=== PATIENT | female | born 1960 | race Caucasian/White ===

== ENCOUNTER 2018-05-07 14:50 | Emergency (ER) | payer SELFPAY ==
[~2018-05-07] VITALS: Ht 157.5 cm; Wt 59.0 kg
--- OUTSIDE RECORDS SUMMARY | 2018-05-07 14:53 | XMS REPORT ---
Author Author Angela Berry [facility] eClinicalWorks Address Unknown Phone Unavailable Care Team Providers Care Knotter Hand Name Role Phone Angela Berry CP Unavailable Allergies, Adverse Reactions, Alerts Substance Reaction Event Type N.K.D.A. Info Not Available Non Drug Allergy Problems Problem Type Condition Code Onset Dates Condition Status Assessment Chronic daily headache R51 Active Problem Attention deficit disorder, unspecified hyperactivity presence F98.8 Active Problem Attention deficit hyperactivity disorder (ADHD), combined type F90.2 Active Problem Attention-deficit hyperactivity disorder, predominantly inattentive type F90.0 Active Assessment Other injury of unspecified body region, initial encounter T14.8XXA Active Assessment Attention deficit hyperactivity disorder (ADHD), combined type F90.2 Active Assessment Body mass index (BMI) of 24.0-24.9 in adult Z68.24 Active Assessment Cellulitis of right hand L03.113 Active Medications Medication Code System Code Instructions Start Date End Date Status Dosage Topamax [facility] 56961829824 100 MG Orally Twice a day Active 1 tablet Mupirocin [facility] 66365703611 2 % Externally Three times a day Dec 23, 2016 Jan 12, 2017 Active 1 application to affected area Adderall XR [facility] 34942559252 30 MG Orally Once a day Active 1 capsule in the morning Multi Vitamin [facility] 83541931533 - Orally Once a day Active 1 tablet Etodolac [facility] 99728672241 400 MG Orally Twice a day Dec 23, 2016 Jan 22, 2017 Active 1 tablet with food Doxycycline Monohydrate [facility] 89935265622 100 MG Orally every 12 hrs Dec 23, 2016 Jan 02, 2017 Active 1 tablet Vital Signs Date/Time: Dec 23, 2016 BMI 24.29 Index Weight 132.8 lbs Height 62 in Cardiac Monitoring Heart Rate 80 /min Blood Pressure Diastolic 79 mm Hg Blood Pressure Systolic 110 mm Hg Results No Known Results Summary Purpose eClinicalWorks Submission
--- OUTSIDE RECORDS SUMMARY | 2018-05-07 14:53 | XMS REPORT | Continuity of Care Document ---
Author Author [facility] Interface Address Unknown Phone Unavailable Problems Problem Status Onset Date Classification Date Reported Comments Source Attention deficit disorder, unspecified hyperactivity presence Active Problem 04/17/2018 [facility] Attention deficit hyperactivity disorder , combined type Active Problem 04/17/2018 [facility] Attention-deficit hyperactivity disorder, predominantly inattentive type Active Problem 04/17/2018 [facility] Chronic daily headache Active Diagnosis 11/19/2017 [facility] Other fatigue Active Diagnosis 02/19/2018 [facility] Body mass index of 24.0-24.9 in adult Active Diagnosis 08/05/2017 [facility] Other injury of unspecified body region, initial encounter Active Diagnosis 06/26/2017 [facility] Cellulitis of right hand Active Diagnosis 06/26/2017 [facility] Moderate persistent reactive airway disease with acute exacerbation Active Problem 04/17/2018 [facility] Body mass index of 30.0-30.9 in adult Active Problem 04/17/2018 [facility] Attention deficit hyperactivity disorder , unspecified ADHD type Active Problem 04/17/2018 [facility] ADD without hyperactivity Active Problem 04/17/2018 [facility] Other migraine without status migrainosus, not intractable Active Problem 04/17/2018 [facility] Other migraine with status migrainosus, intractable Active Problem 04/17/2018 [facility] Fatigue, unspecified type Active Diagnosis 06/27/2017 [facility] [employer] [facility] Medication refill Active Diagnosis 02/19/2018 [facility] BMI 23.0-23.9, adult Active Diagnosis 02/19/2018 [facility] Dizziness Active Diagnosis 03/24/2018 [facility] Other eczema Active Diagnosis 03/24/2018 [facility] Pain of left thumb Active Diagnosis 03/24/2018 [facility] Allergic drug rash Active Diagnosis 01/11/2018 [facility] Muscle spasm Active Diagnosis 12/22/2017 [facility] Tail bone pain Active Diagnosis 12/22/2017 [facility] Urticaria Active Diagnosis 01/11/2018 [facility] Encounter for general adult medical examination without abnormal findings Active Diagnosis 12/22/2017 [facility] Medications Medication Details Route Status Patient Instructions Ordering Provider Order Date Source Triamcinolone Acetonide 1 application to affected area Externally Active 0.1 % Externally Twice a day [facility] 03/16/2018 [facility] Tylenol/Codeine #3 1 tablet as needed Orally Active 300-30 MG Orally twice a day (bid) as needed (prn) [facility]03/16/2018 [facility] Clonazepam 1 tablet at bedtime Orally Active 0.5 MG Orally three times a day (tid) as needed (prn) [facility] 02/23/2018 [facility] Toprol XL 1 tablet Orally Active 100 mg Orally Once a day [facility] 08/29/2017 [facility] Clonazepam 1 tablet on the tongue and allow to dissolve at bedtime Orally Active 0.5 MG Orally three times a day (tid) as needed (prn) [facility] 08/29/2017 [facility] Clonazepam 1 tablet Orally Active 0.5 MG Orally three times a day (tid) as needed (prn) [facility] 08/29/2017 [facility] Adderall 1 tablet in the morning Orally Active 30 mg Orally Once a day [facility] 01/22/2017 [facility] Etodolac 1 tablet with food Orally Active 400 MG Orally Twice a day [facility] 12/23/2016 [facility] Mupirocin 1 application to affected area Externally Active 2 % Externally Three times a day [facility] 12/23/2016 [facility] Doxycycline Monohydrate 1 tablet Orally Active 100 MG Orally every 12 hrs [facility] 12/23/2016 [facility] Adderall XR 1 capsule in the morning Orally Active 30 MG Orally Once a day [facility] Topamax 1 tablet Orally Active 100 mg Orally Twice a day [facility] Multi Vitamin 1 tablet Orally Active - Orally Once a day [facility] Baby Aspirin 1 tablet by mouth Active 81 MG by mouth Once a day [facility] Allergies, Adverse Reactions, Alerts Substance Category Reaction Severity Reaction type Status Date Reported Comments Source N.K.D.A. Adverse Reaction Info Not Available Adverse Reaction Active 04/30/2017 [facility] prednisone Adverse Reaction Info Not Available Adverse Reaction Active 03/16/2018 [facility] Immunizations Immunization Date Given Site Status Last Updated Comments Source Results Order Name Results Value Reference Range Date Interpretation Comments Source Vital Signs Vital Sign Value Date Comments Source Weight 131.8 03/16/2018 [facility] Height 62 03/16/2018 [facility] Heart Rate 104 03/16/2018 [facility] Diastolic (mm Hg) 99 03/16/2018 [facility] Systolic (mm Hg) 159 03/16/2018 [facility] Weight 130 02/12/2018 [facility] Height 62 02/12/2018 [facility] Heart Rate 74 02/12/2018 [facility] Diastolic (mm Hg) 87 02/12/2018 [facility] Systolic (mm Hg) 134 02/12/2018 [facility] Weight 130.2 01/09/2018 [facility] Height 62 01/09/2018 [facility] Heart Rate 76 01/09/2018 [facility] Diastolic (mm Hg) 89 01/09/2018 [facility] Systolic (mm Hg) 136 01/09/2018 [facility] Weight 129.8 12/03/2017 [facility] Height 62 12/03/2017 [facility] Heart Rate 80 12/03/2017 [facility] Diastolic (mm Hg) 82 12/03/2017 [facility] Systolic (mm Hg) 130 12/03/2017 [facility] Weight 286.16 11/21/2017 [facility] Height 24.41 11/21/2017 [facility] Heart Rate 98 11/21/2017 [facility] Diastolic (mm Hg) 82 11/21/2017 [facility] Systolic (mm Hg) 129 11/21/2017 [facility] Weight 129 10/22/2017 [facility] Height 62 10/22/2017 [facility] Heart Rate 103 10/22/2017 [facility] Diastolic (mm Hg) 116 10/22/2017 [facility] Systolic (mm Hg) 156 10/22/2017 [facility] Weight 130.7 09/26/2017 [facility] Height 62 09/26/2017 [facility] Heart Rate 78 09/26/2017 [facility] Diastolic (mm Hg) 89 09/26/2017 [facility] Systolic (mm Hg) 139 09/26/2017 [facility] Weight 131.8 08/29/2017 [facility] Height 62 08/29/2017 [facility] Heart Rate 67 08/29/2017 [facility] Diastolic (mm Hg) 81 08/29/2017 [facility] Systolic (mm Hg) 148 08/29/2017 [facility] Weight 132.6 06/23/2017 [facility] Height 62 06/23/2017 [facility] Heart Rate 74 06/23/2017 [facility] Diastolic (mm Hg) 84 06/23/2017 [facility] Systolic (mm Hg) 136 06/23/2017 [facility] Weight 134.6 04/30/2017 [facility] Height 62 04/30/2017 [facility] Heart Rate 78 04/30/2017 [facility] Diastolic (mm Hg) 76 04/30/2017 [facility] Systolic (mm Hg) 112 04/30/2017 [facility] Weight 133.4 04/02/2017 [facility] Height 62 04/02/2017 [facility] Heart Rate 80 04/02/2017 [facility] Diastolic (mm Hg) 79 04/02/2017 [facility] Systolic (mm Hg) 110 04/02/2017 [facility] Weight 134.0 02/25/2017 [facility] Height 62 02/25/2017 [facility] Heart Rate 68 02/25/2017 [facility] Diastolic (mm Hg) 78 02/25/2017 [facility] Systolic (mm Hg) 113 02/25/2017 [facility] Weight 133.2 01/22/2017 [facility] Height 62 01/22/2017 [facility] Heart Rate 62 01/22/2017 [facility] Diastolic (mm Hg) 79 01/22/2017 [facility] Systolic (mm Hg) 113 01/22/2017 [facility] Weight 132.8 12/23/2016 [facility] Height 62 12/23/2016 [facility] Heart Rate 80 12/23/2016 [facility] Diastolic (mm Hg) 79 12/23/2016 [facility] Systolic (mm Hg) 110 12/23/2016 [facility] Encounters Location Location Details Encounter Type Encounter Number Reason For Visit Attending Provider ADM Date DC Date Status Source Procedures Procedure Code Date Perfomer Comments Source
--- OUTSIDE RECORDS SUMMARY | 2018-05-07 14:53 | XMS REPORT ---
Author Author Angela Berry [facility] eClinicalWorks Address Unknown Phone Unavailable Care Team Providers Care Bulldozer/Loader/Compactor/Scraper Name Role Phone Angela Berry CP Unavailable Allergies, Adverse Reactions, Alerts Substance Reaction Event Type N.K.D.A. 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 64962063737 100 MG Orally Twice a day Active 1 tablet Adderall [facility] 15186415199 30 mg Orally Once a day Jan 22, 2017 Active 1 tablet in the morning Adderall XR ND 41304576758 30 MG Orally Once a day Active 1 capsule in the morning Multi Vitamin ND 15201923382 - Orally Once a day Active 1 tablet Vital Signs Date/Time: Feb 25, 2017 BMI 24.51 Index Weight 134.0 lbs Height 62 in Cardiac Monitoring Heart Rate 68 /min Blood Pressure Diastolic 78 mm Hg Blood Pressure Systolic 113 mm Hg Results No Known Results Summary Purpose eClinicalWorks Submission
--- OUTSIDE RECORDS SUMMARY | 2018-05-07 14:53 | XMS REPORT ---
Author Author Angela Berry eClinicalWorks Address Unknown Phone Unavailable Care Team Providers Care Wind Turbine Performance Engineer Name Role Phone Angela Berry CP Unavailable Allergies, Adverse Reactions, Alerts Substance Reaction Event Type N.K.D.A. 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 Active Problem Attention-deficit hyperactivity disorder, predominantly inattentive type F90.0 Active Assessment Attention deficit hyperactivity disorder (ADHD), combined type F90.2 Active Assessment Chronic daily headache R51 Active Assessment Other fatigue R53.83 Active Assessment Body mass index (BMI) of 24.0-24.9 in adult Z68.24 Active Medications Medication Code System Code Instructions Start Date End Date Status Dosage Adderall XR [facility] 51213842819 30 MG Orally Once a day Active 1 capsule in the morning Etodolac [facility] 11006915657 400 MG Orally Twice a day Dec 23, 2016 Jan 22, 2017 Active 1 tablet with food Topamax [facility] 28358652864 100 MG Orally Twice a day Active 1 tablet Adderall [facility] 47920875715 30 mg Orally Once a day Jan 22, 2017 Active 1 tablet in the morning Multi Vitamin ND 17805746152 - Orally Once a day Active 1 tablet Vital Signs Date/Time: Jan 22, 2017 BMI 24.36 Index Weight 133.2 lbs Height 62 in Cardiac Monitoring Heart Rate 62 /min Blood Pressure Diastolic 79 mm Hg Blood Pressure Systolic 113 mm Hg Results No Known Results Summary Purpose eClinicalWorks Submission
--- OUTSIDE RECORDS SUMMARY | 2018-05-07 14:54 | XMS REPORT ---
Author Author Angela Berry [facility] eClinicalWorks Address Unknown Phone Unavailable Care Team Providers Care Flight Test Supervisor Name Role Phone Angela Berry CP Unavailable Allergies No Known Allergies Problems Problem Type Condition Code Onset Dates Condition Status Problem Attention-deficit hyperactivity disorder, predominantly inattentive type F90.0 Active Problem Attention deficit disorder, unspecified hyperactivity presence F98.8 Active Problem Moderate persistent reactive airway disease with acute exacerbation J45.41 Active Problem Attention deficit hyperactivity disorder (ADHD), combined type F90.2 Active Medications No Known Medications Results No Known Results Summary Purpose eClinicalWorks Submission
--- OUTSIDE RECORDS SUMMARY | 2018-05-07 14:54 | XMS REPORT ---
Author Author Angela Berry Organization eClinicalWorks Address Unknown Phone Unavailable Care Team Providers Care Water Taxi Boat Mate Name Role Phone Angela Berry CP Unavailable Allergies No Known Allergies Problems Problem Type Condition Code Onset Dates Condition Status Problem Attention deficit disorder, unspecified hyperactivity presence F98.8 Active Problem Attention deficit hyperactivity disorder (ADHD), combined type F90.2 Active Problem Body mass index (BMI) of 30.0-30.9 in adult Z68.30 Active Problem Attention deficit hyperactivity disorder (ADHD), unspecified ADHD type F90.9 Active Problem ADD (attention deficit disorder) without hyperactivity F98.8 Active Problem Moderate persistent reactive airway disease with acute exacerbation J45.41 Active Problem Attention-deficit hyperactivity disorder, predominantly inattentive type F90.0 Active Problem Other migraine without status migrainosus, not intractable G43.809 Active Problem Other migraine with status migrainosus, intractable G43.811 Active Medications No Known Medications Results No Known Results Summary Purpose eClinicalWorks Submission
--- OUTSIDE RECORDS SUMMARY | 2018-05-07 14:54 | XMS REPORT ---
Author Author Angela Berry eClinicalWorks Address Unknown Phone Unavailable Care Team Providers Care Assistant Teacher Primary Name Role Phone Angela Berry Unavailable Allergies, Adverse Reactions, Alerts Substance Reaction Event Type prednisone Info Not Available Non Drug Allergy Problems Problem Type Condition Code Onset Dates Condition Status Assessment ADD (attention deficit disorder) without hyperactivity F98.8 Active Problem Attention deficit hyperactivity disorder (ADHD), combined type F90.2 Active Assessment BMI 23.0-23.9, adult Z68.23 Active Assessment Medication refill Z76.0 Active Assessment Other fatigue R53.83 Active Problem Attention deficit hyperactivity disorder (ADHD), unspecified ADHD type F90.9 Active Problem Other migraine with status migrainosus, intractable G43.811 Active Problem ADD (attention deficit disorder) without hyperactivity F98.8 Active Problem Attention-deficit hyperactivity disorder, predominantly inattentive type F90.0 Active Problem Attention deficit disorder, unspecified hyperactivity presence F98.8 Active Problem Other migraine without status migrainosus, not intractable G43.809 Active Problem Moderate persistent reactive airway disease with acute exacerbation J45.41 Active Medications Medication Code System Code Instructions Start Date End Date Status Dosage Baby Aspirin NDC 0 81 MG by mouth Once a day Active 1 tablet Toprol XL ND 83770603283 100 mg Orally Once a day August 29, 2017 Active 1 tablet Adderall ND 68224962314 30 mg Orally Once a day Jan 22, 2017 Active 1 tablet in the morning Topamax ND 33933981127 100 mg Orally Twice a day Active 1 tablet Clonazepam ND 59817996437 0.5 MG Orally three times a day (tid) as needed (prn) August 29, 2017 Active 1 tablet on the tongue and allow to dissolve at bedtime Multi Vitamin ND 09070144469 - Orally Once a day Active 1 tablet Vital Signs Date/Time: Jan 09, 2018 BMI 23.81 Index Weight 130.2 lbs Height 62 in Cardiac Monitoring Heart Rate 76 /min Blood Pressure Diastolic 89 mm Hg Blood Pressure Systolic 136 mm Hg Results No Known Results Summary Purpose eClinicalWorks Submission
--- OUTSIDE RECORDS SUMMARY | 2018-05-07 14:54 | XMS REPORT ---
Author Author Angela Berry Organization eClinicalWorks Address Unknown Phone Unavailable Care Team Providers Care Motor Runner Name Role Phone Angela Berry Unavailable Allergies No Known Allergies Problems Problem [...] with status migrainosus, intractable G43.811 Active Medications Medication Code System Code Instructions Start Date End Date Status Dosage Clonazepam [facility] 64486024503 0.5 MG Orally three times a day (tid) as needed (prn) Feb 23, 2018 Active 1 tablet at bedtime Results No Known Results Summary Purpose eClinicalWorks Submission
--- OUTSIDE RECORDS SUMMARY | 2018-05-07 14:54 | XMS REPORT ---
Author Author Angela Berry eClinicalWorks Address Unknown Phone Unavailable Care Team Providers Care Knobber Name Role Phone Angela Berry Unavailable Allergies, [...] migraine with status migrainosus, intractable G43.811 Active Assessment Attention deficit hyperactivity disorder (ADHD), unspecified ADHD type F90.9 Active Assessment Dizziness R42 Active Assessment Other eczema L30.8 Active Assessment Pain of left thumb M79.645 Active Medications Medication Code System Code Instructions Start Date End Date Status Dosage Clonazepam [facility] 08399841813 0.5 MG Orally three times a day (tid) as needed (prn) August 29, 2017 Active 1 tablet Toprol XL [facility] 21932075986 100 mg Orally Once a day August 29, 2017 Active 1 tablet Triamcinolone Acetonide [facility] 61331106859 0.1 % Externally Twice a day Mar 16, 2018 Active 1 application to affected area Clonazepam ND 43770108295 0.5 MG Orally three times a day (tid) as needed (prn) Feb 23, 2018 Active 1 tablet at bedtime Adderall [facility] 80767730682 30 mg Orally Once a day Jan 22, 2017 Active 1 tablet in the morning Tylenol/Codeine #3 [facility] 31546755747 300-30 MG Orally twice a day (bid) as needed (prn) Mar 16, 2018 Apr 15, 2018 Active 1 tablet as needed Topamax [facility] 21879433244 100 mg Orally Twice a day Active 1 tablet Multi Vitamin [facility] 26487428989 - Orally Once a day Active 1 tablet Baby Aspirin NDC 0 81 MG by mouth Once a day Active 1 tablet Vital Signs Date/Time: Mar 16, 2018 BMI 24.10 Index Weight 131.8 lbs Height 62 in Cardiac Monitoring Heart Rate 104 /min Blood Pressure Diastolic 99 mm Hg Blood Pressure Systolic 159 mm Hg Results No Known Results Summary Purpose eClinicalWorks Submission
--- OUTSIDE RECORDS SUMMARY | 2018-05-07 14:54 | XMS REPORT ---
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 Active Problem Attention deficit hyperactivity disorder (ADHD), [...] airway disease with acute exacerbation J45.41 Active Assessment Attention deficit hyperactivity disorder (ADHD), combined 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 Active Assessment Allergic drug rash L27.0 Active Assessment Muscle spasm M62.838 Active Assessment Other migraine without status migrainosus, not intractable G43.809 Active Assessment Tail bone pain M53.3 Active Assessment Urticaria L50.9 Active Medications Medication Code System Code Instructions Start Date End Date Status Dosage Adderall [facility] 11769748333 30 mg Orally Once a day Jan 22, 2017 Active 1 tablet in the morning Toprol XL ND 03276991046 100 mg Orally Once a day August 29, 2017 Active 1 tablet Multi Vitamin ND 87634597172 - Orally Once a day Active 1 tablet Adderall XR [facility] 14860372464 30 MG Orally Once a day Active 1 capsule in the morning Clonazepam ND 05356505000 0.5 MG Orally three times a day (tid) as needed (prn) August 29, 2017 Active 1 tablet on the tongue and allow to dissolve at bedtime Topamax [facility] 21386647898 100 mg Orally Twice a day Active 1 tablet Vital Signs Date/Time: September 26, 2017 BMI 23.90 Index Weight 130.7 lbs Height 62 in Cardiac Monitoring Heart Rate 78 /min Blood Pressure Diastolic 89 mm Hg Blood Pressure Systolic 139 mm Hg Results No Known Results Summary Purpose eClinicalWorks Submission
--- OUTSIDE RECORDS SUMMARY | 2018-05-07 14:54 | XMS REPORT ---
Author Author Angela Berry Organization eClinicalWorks Address Unknown Phone Unavailable Care Team Providers Care Wildlife Refuge Specialist Name Role Phone Angela Berry CP Unavailable [...] Start Date End Date Status Dosage Clonazepam [facility] 54712008725 0.5 MG Orally three times a day (tid) as needed (prn) Feb 23, 2018 Active 1 tablet at bedtime Results No Known Results Summary Purpose eClinicalWorks Submission
--- OUTSIDE RECORDS SUMMARY | 2018-05-07 14:54 | XMS REPORT ---
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 Active Assessment Body mass index (BMI) of 30.0-30.9 in adult Z68.30 Active Assessment Medication refill Z76.0 Active Assessment Attention deficit hyperactivity disorder (ADHD), unspecified ADHD type F90.9 Active Problem Body mass index (BMI) of [...] Instructions Start Date End Date Status Dosage Multi Vitamin [facility] [place] 11354704207 - Orally Once a day Active 1 tablet Adderall [facility] [place] 14027348614 30 mg Orally Once a day Jan 22, 2017 Active 1 tablet in the morning Baby Aspirin NDC 0 81 MG by mouth Once a day Active 1 tablet Toprol XL ND 96421484987 100 mg Orally Once a day August 29, 2017 Active 1 tablet Clonazepam [facility] [place] 91245493110 0.5 MG Orally three times a day (tid) as needed (prn) August 29, 2017 Active 1 tablet on the tongue and allow to dissolve at bedtime Topamax [facility] [place] 40417816095 100 mg Orally Twice a day Active 1 tablet Vital Signs Date/Time: Nov 21, 2017 BMI 337.62 Index Weight 286.16 lbs Height 24.41 in Cardiac Monitoring Heart Rate 98 /min Blood Pressure Diastolic 82 mm Hg Blood Pressure Systolic 129 mm Hg Results No Known Results Summary Purpose eClinicalWorks Submission
--- OUTSIDE RECORDS SUMMARY | 2018-05-07 14:54 | XMS REPORT ---
Author Author Angela Berry [facility] eClinicalWorks Address Unknown Phone Unavailable Care Team Providers Care Manager Medicare Name Role Phone Angela Berry CP Unavailable [...] of 24.0-24.9 in adult Z68.24 Active Assessment Other fatigue R53.83 Active Assessment Attention-deficit hyperactivity disorder, predominantly inattentive type F90.0 Active Medications Medication Code System Code Instructions Start Date End Date Status Dosage Adderall [facility] 60582749201 30 mg Orally Once a day Jan 22, 2017 Active 1 tablet in the morning Adderall XR ND 11488778301 30 MG Orally Once a day Active 1 capsule in the morning Topamax ND 13039256403 100 mg Orally Twice a day Active 1 tablet Multi Vitamin ND 54257369648 - Orally Once a day Active 1 tablet Vital Signs Date/Time: June 23, 2017 BMI 24.25 Index Weight 132.6 lbs Height 62 in Cardiac Monitoring Heart Rate 74 /min Blood Pressure Diastolic 84 mm Hg Blood Pressure Systolic 136 mm Hg Results No Known Results Summary Purpose eClinicalWorks Submission
--- OUTSIDE RECORDS SUMMARY | 2018-05-07 14:54 | XMS REPORT ---
Author Author Angela Berry Organization eClinicalWorks Address Unknown Phone Unavailable Care Team Providers Care Organic Search Lead Name Role Phone Angela Berry Unavailable Allergies No Known Allergies Problems Problem Type Condition Code Onset Dates Condition Status Problem Attention deficit disorder, unspecified hyperactivity presence F98.8 Active Problem Attention deficit hyperactivity disorder (ADHD), combined type F90.2 Active Assessment Attention deficit hyperactivity disorder (ADHD), [...] Start Date End Date Status Dosage Clonazepam [facility] 29993742257 0.5 MG Orally three times a day (tid) as needed (prn) August 29, 2017 Active 1 tablet Results No Known Results Summary Purpose eClinicalWorks Submission
--- OUTSIDE RECORDS SUMMARY | 2018-05-07 14:54 | XMS REPORT ---
Author Author Angela Berry [facility] eClinicalWorks Address Unknown Phone Unavailable Care Team Providers Care Pharmacognosist Name Role Phone Angela Berry CP Unavailable [...] of 24.0-24.9 in adult Z68.24 Active Assessment Attention-deficit hyperactivity disorder, predominantly inattentive type F90.0 Active Assessment Other fatigue R53.83 Active Medications Medication Code System Code Instructions Start Date End Date Status Dosage Topamax ND 19368254152 100 MG Orally Twice a day Active 1 tablet Multi Vitamin ND 33756202905 - Orally Once a day Active 1 tablet Adderall XR ND 67334817352 30 MG Orally Once a day Active 1 capsule in the morning Adderall [facility] 47615967829 30 mg Orally Once a day Jan 22, 2017 Active 1 tablet in the morning Vital Signs Date/Time: Apr 30, 2017 BMI 24.62 Index Weight 134.6 lbs Height 62 in Cardiac Monitoring Heart Rate 78 /min Blood Pressure Diastolic 76 mm Hg Blood Pressure Systolic 112 mm Hg Results No Known Results Summary Purpose eClinicalWorks Submission
--- OUTSIDE RECORDS SUMMARY | 2018-05-07 14:54 | XMS REPORT ---
Author Author Angela Berry eClinicalWorks Address Unknown Phone Unavailable Care Team Providers Care Radio Board Operator Name Role Phone Angela Berry Unavailable Allergies, Adverse Reactions, Alerts Substance Reaction Event Type prednisone Info Not Available Non Drug Allergy Problems Problem Type Condition Code Onset Dates Condition Status Assessment Other fatigue R53.83 Active Problem Attention deficit hyperactivity disorder (ADHD), combined type F90.2 Active Assessment ADD (attention deficit disorder) without hyperactivity F98.8 Active Assessment BMI 23.0-23.9, adult Z68.23 Active Assessment Medication refill Z76.0 Active Problem Attention deficit hyperactivity disorder (ADHD), [...] Date End Date Status Dosage Multi Vitamin ND 59333913291 - Orally Once a day Active 1 tablet Topamax ND 24401705812 100 mg Orally Twice a day Active 1 tablet Clonazepam ND 35309025144 0.5 MG Orally three times a day (tid) as needed (prn) August 29, 2017 Active 1 tablet on the tongue and allow to dissolve at bedtime Baby Aspirin NDC 0 81 MG by mouth Once a day Active 1 tablet Adderall ND 01737608305 30 mg Orally Once a day Jan 22, 2017 Active 1 tablet in the morning Toprol XL ND 03812618844 100 mg Orally Once a day August 29, 2017 Active 1 tablet Vital Signs Date/Time: Dec 03, 2017 BMI 23.74 Index Weight 129.8 lbs Height 62 in Cardiac Monitoring Heart Rate 80 /min Blood Pressure Diastolic 82 mm Hg Blood Pressure Systolic 130 mm Hg Results No Known Results Summary Purpose eClinicalWorks Submission
--- OUTSIDE RECORDS SUMMARY | 2018-05-07 14:54 | XMS REPORT ---
Author Author Angela Berry Organization eClinicalWorks Address Unknown Phone Unavailable Care Team Providers Care Electron Beam Welder Setter Name Role Phone Angela Berry CP Unavailable Allergies, Adverse Reactions, Alerts Substance Reaction Event Type prednisone Info Not Available Non Drug Allergy Problems Problem Type Condition Code Onset Dates Condition Status Assessment Chronic daily headache R51 Active Assessment Allergic drug rash L27.0 Active Assessment Attention deficit hyperactivity disorder (ADHD), combined type F90.2 Active Assessment Muscle spasm M62.838 Active Assessment Tail bone pain M53.3 Active Problem Moderate persistent reactive airway disease with acute exacerbation J45.41 Active Problem Attention-deficit hyperactivity disorder, predominantly inattentive type F90.0 Active Problem Attention deficit hyperactivity disorder (ADHD), unspecified ADHD type F90.9 Active Assessment Urticaria L50.9 Active Assessment Other fatigue R53.83 Active Problem Attention deficit disorder, unspecified hyperactivity presence F98.8 Active Problem Attention deficit hyperactivity disorder (ADHD), combined type F90.2 Active Medications Medication Code System Code Instructions Start Date End Date Status Dosage Toprol XL [facility] 33356728376 100 mg Orally Once a day August 29, 2017 Active 1 tablet Adderall [facility] 93094943346 30 mg Orally Once a day Jan 22, 2017 Active 1 tablet in the morning Multi Vitamin ND 22660246207 - Orally Once a day Active 1 tablet Topamax ND 59553498816 100 mg Orally Twice a day Active 1 tablet Clonazepam ND 78161219049 0.5 MG Orally three times a day (tid) as needed (prn) August 29, 2017 Active 1 tablet on the tongue and allow to dissolve at bedtime Adderall XR [facility] 32147391920 30 MG Orally Once a day Active 1 capsule in the morning Vital Signs Date/Time: August 29, 2017 BMI 24.10 Index Weight 131.8 lbs Height 62 in Cardiac Monitoring Heart Rate 67 /min Blood Pressure Diastolic 81 mm Hg Blood Pressure Systolic 148 mm Hg Results No Known Results Summary Purpose eClinicalWorks Submission
--- OUTSIDE RECORDS SUMMARY | 2018-05-07 14:54 | XMS REPORT ---
Author Author [facility] Address Unknown Phone Unavailable Care Team Providers Care Freezer Unloader Name Role Phone Unavailable Unavailable Problems This patient has no known problems. Allergies, Adverse Reactions, Alerts This patient has no known allergies or adverse reactions. Medications This patient has no known medications. Results Test Description Test Time Test Comments Text Results Atomic Results Result Comments BREAST ULTRASOUND BILATERAL 2018-03-12 17:10:02 - DIAG MAMM BILATERAL POOJA CAD DIGITALBILATERAL DIGITAL DIAGNOSTIC MAMMOGRAM 3D/2D WITH CAD: 03/12/2018CLINICAL: Palpable mass, left breast. Current mammographic images were evaluated by either a Latinda-Vu or an ExanetD version 7.2 computer aided detection system. Comparison is made to exams dated 08/24/2008 mammogram - [facility] and 10/10/2006 mammogram - [facility]. The tissue of both breasts is extremely dense, which lowers the sensitivity of mammography. There are benign scattered calcifications in both breasts. No suspicious mass, architectural distortion, malignant type calcification, or lymph node abnormality detected. INCOMPLETE ASSESSMENT: ADDITIONAL IMAGING EVALUATION RECOMMENDEDUltrasound pending for additional evaluation. There is no mammographic evidence of malignancy. - BREAST ULTRASOUND BILATERALULTRASOUND OF BOTH BREASTS AND BOTH AXILLA: 03/12/2018Comparison is made to exams dated 08/24/2008 mammogram - [facility] and 10/10/2006 mammogram - [facility]. Real-time ultrasound of both breasts and both axilla was performed. No abnormalities were seen sonographically in either breast or either axilla. Clinical breast exam unremarkable.IMPRESSION: NEGATIVE - FOLLOW-UP RECOMMENDEDThere is no sonographic evidence of malignancy. Patient has been informed that she has areas of dense breast tissue that could make it difficult to find a small cancer. A follow-up mammogram and an ultrasound in 6 months is recommended to demonstrate stability. Shanthi Jensen M.D. dm/:03/12/2018 17:10:02 Senior Oracle Database Administrator: Teri SUNG, [facility] sent: BIRADS 1-2 Combo FU Letter Mammogram BI-RADS: 0 Indeterminate Ultrasound BI-RADS: 1 Negative DIAG MAMM BILATERAL POOJA CAD DIGITAL 2018-03-12 17:10:02 - DIAG MAMM BILATERAL POOJA CAD DIGITALBILATERAL DIGITAL DIAGNOSTIC MAMMOGRAM 3D/2D WITH CAD: 03/12/2018CLINICAL: Palpable mass, left breast. Current mammographic images were evaluated by either a Latinda-Vu or an Duxter version 7.2 computer aided detection system. Comparison is made to exams dated 08/24/2008 mammogram - [facility] and 10/10/2006 mammogram - [facility]. The tissue of both breasts is extremely dense, which lowers the sensitivity of mammography. There are benign scattered calcifications in both breasts. No suspicious mass, architectural distortion, malignant type calcification, or lymph node abnormality detected. INCOMPLETE ASSESSMENT: ADDITIONAL IMAGING EVALUATION RECOMMENDEDUltrasound pending for additional evaluation. There is no mammographic evidence of malignancy. - BREAST ULTRASOUND BILATERALULTRASOUND OF BOTH BREASTS AND BOTH AXILLA: 03/12/2018Comparison is made to exams dated 08/24/2008 mammogram - [facility] and 10/10/2006 mammogram - [facility]. Real-time ultrasound of both breasts and both axilla was performed. No abnormalities were seen sonographically in either breast or either axilla. Clinical breast exam unremarkable.
--- OUTSIDE RECORDS SUMMARY | 2018-05-07 14:54 | XMS REPORT ---
Author Author Angela Berry [facility] eClinicalWorks Address Unknown Phone Unavailable Care Team Providers Care Rn Obgyn Name Role Phone Angela Berry CP Unavailable Allergies, Adverse Reactions, Alerts Substance Reaction Event Type N.K.D.A. 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 Active Problem Attention-deficit hyperactivity disorder, predominantly inattentive type F90.0 Active Assessment Fatigue, unspecified type R53.83 Active Assessment Body mass index (BMI) of 24.0-24.9 in adult Z68.24 Active Assessment Attention deficit disorder, unspecified hyperactivity presence F98.8 Active Medications Medication Code System Code Instructions Start Date End Date Status Dosage Topamax ND 86580394823 100 MG Orally Twice a day Active 1 tablet Multi Vitamin ND 20354741409 - Orally Once a day Active 1 tablet Adderall ND 77648052822 30 mg Orally Once a day Jan 22, 2017 Active 1 tablet in the morning Adderall XR ND 62119368200 30 MG Orally Once a day Active 1 capsule in the morning Vital Signs Date/Time: Apr 02, 2017 BMI 24.40 Index Weight 133.4 lbs Height 62 in Cardiac Monitoring Heart Rate 80 /min Blood Pressure Diastolic 79 mm Hg Blood Pressure Systolic 110 mm Hg Results No Known Results Summary Purpose eClinicalWorks Submission
--- OUTSIDE RECORDS SUMMARY | 2018-05-07 14:54 | XMS REPORT ---
Author Author Angela Berry eClinicalWorks Address Unknown Phone Unavailable Care Team Providers Care Manager Field Services Name Role Phone Angela Berry Unavailable Allergies, Adverse Reactions, Alerts Substance Reaction Event Type prednisone Info Not Available Non Drug Allergy Problems Problem Type Condition Code Onset Dates Condition Status Assessment Attention deficit hyperactivity disorder (ADHD), unspecified ADHD type F90.9 Active Problem Attention deficit hyperactivity disorder (ADHD), [...] Assessment Allergic drug rash L27.0 Active Assessment Other migraine without status migrainosus, not intractable G43.809 Active Assessment Urticaria L50.9 Active Medications Medication Code System Code Instructions Start Date End Date Status Dosage Adderall XR [facility] 88405753703 30 MG Orally Once a day Active 1 capsule in the morning Baby Aspirin NDC 0 81 MG by mouth Once a day Active 1 tablet Adderall [facility] 65191671017 30 mg Orally Once a day Jan 22, 2017 Active 1 tablet in the morning Toprol XL ND 32956975646 100 mg Orally Once a day August 29, 2017 Active 1 tablet Clonazepam [facility] 34418673044 0.5 MG Orally three times a day (tid) as needed (prn) August 29, 2017 Active 1 tablet on the tongue and allow to dissolve at bedtime Topamax [facility] 89684710975 100 mg Orally Twice a day Active 1 tablet Multi Vitamin [facility] 65689858289 - Orally Once a day Active 1 tablet Vital Signs Date/Time: Oct 22, 2017 BMI 23.59 Index Weight 129 lbs Height 62 in Cardiac Monitoring Heart Rate 103 /min Blood Pressure Diastolic 116 mm Hg Blood Pressure Systolic 156 mm Hg Results No Known Results Summary Purpose eClinicalWorks Submission
--- OUTSIDE RECORDS SUMMARY | 2018-05-07 14:54 | XMS REPORT ---
Author Author Angela Berry [facility] eClinicalWorks Address Unknown Phone Unavailable Care Team Providers Care Ship Yard Electrical Person Name Role Phone Angela Berry CP Unavailable [...]
--- OUTSIDE RECORDS SUMMARY | 2018-05-07 14:54 | XMS REPORT ---
Author Author Angela Berry eClinicalWorks Address Unknown Phone Unavailable Care Team Providers Care Journeyman Power Plant Operator Name Role Phone Angela Berry Unavailable [...] with status migrainosus, intractable G43.811 Active Assessment Medication refill Z76.0 Active Assessment Other fatigue R53.83 Active Assessment ADD (attention deficit disorder) without hyperactivity F98.8 Active Assessment BMI 23.0-23.9, adult Z68.23 Active Assessment Attention deficit hyperactivity disorder (ADHD), unspecified ADHD type F90.9 Active Medications Medication Code System Code Instructions Start Date End Date Status Dosage Topamax [facility] 26127231649 100 mg Orally Twice a day Active [address] [facility] 92536290592 30 mg Orally Once a day Jan 22, 2017 Active 1 tablet in the morning Baby Aspirin NDC 0 81 MG by mouth Once a day Active 1 tablet Toprol XL ND 55018970661 100 mg Orally Once a day August 29, 2017 Active [address] [facility] 20244622013 0.5 MG Orally three times a day (tid) as needed (prn) August 29, 2017 Active 1 tablet on the tongue and allow to dissolve at bedtime Multi Vitamin [facility] 10201684197 - Orally Once a day Active 1 tablet Vital Signs Date/Time: Feb 12, 2018 BMI 23.77 Index Weight 130 lbs Height 62 in Cardiac Monitoring Heart Rate 74 /min Blood Pressure Diastolic 87 mm Hg Blood Pressure Systolic 134 mm Hg Results No Known Results Summary Purpose eClinicalWorks Submission
--- OUTSIDE RECORDS SUMMARY | 2018-05-07 14:54 | XMS REPORT ---
Author Author Angela Berry [facility] eClinicalWorks Address Unknown Phone Unavailable Care Team Providers Care Safety Attendant Name Role Phone Angela Berry CP Unavailable Allergies No Known Allergies Problems Problem Type Condition Code Onset Dates Condition Status Problem Attention-deficit hyperactivity disorder, predominantly inattentive type F90.0 Active Problem Attention deficit disorder, unspecified hyperactivity presence F98.8 Active Problem Moderate persistent reactive airway disease with acute exacerbation J45.41 Active Assessment Body mass index (BMI) of 24.0-24.9 in adult Z68.24 Active Assessment Attention deficit hyperactivity disorder (ADHD), combined type F90.2 Active Problem Attention deficit hyperactivity disorder (ADHD), combined type F90.2 Active Assessment Other fatigue R53.83 Active Medications Medication Code System Code Instructions Start Date End Date Status Dosage Adderall XR [facility] 33286553331 30 MG Orally Once a day Active 1 capsule in the morning Adderall [facility] 73286133240 30 mg Orally Once a day Jan 22, 2017 Active 1 tablet in the morning Multi Vitamin ND 31883824973 - Orally Once a day Active 1 tablet Topamax [facility] 59375312731 100 mg Orally Twice a day Active 1 tablet Results No Known Results Summary Purpose eClinicalWorks Submission
--- OUTSIDE RECORDS SUMMARY | 2018-05-07 14:54 | XMS REPORT ---
Author Author Angela Berry [facility] eClinicalWorks Address Unknown Phone Unavailable Care Team Providers Care Document Control Clerk Name Role Phone Angela Berry CP Unavailable Allergies No Known Allergies Problems Problem Type Condition Code Onset Dates Condition Status Problem Moderate persistent reactive airway disease with acute exacerbation J45.41 Active Problem Attention-deficit hyperactivity disorder, predominantly inattentive type F90.0 Active Problem Attention deficit hyperactivity disorder (ADHD), unspecified ADHD type F90.9 Active Problem Attention deficit disorder, unspecified hyperactivity presence F98.8 Active Problem Attention deficit hyperactivity disorder (ADHD), combined type F90.2 Active Medications No Known Medications Results No Known Results Summary Purpose eClinicalWorks Submission
[2018-05-07] MEDS ORDERED: IBUPROFEN 600 MG TAB PO STA (15:16)
[2018-05-07] MEDS ORDERED: ACETAMINOPHEN 325 MG TAB PO ONE (15:30)
--- NOTE | 2018-05-07 16:31 | Diagnostic Imaging Report ---
Exam: Left hand 3 views History: Pain Comparison: None. Findings: No fracture or malalignment. Joint spaces preserved. No abnormal soft tissue calcification or soft tissue defect. Impression: No acute osseous abnormality Signed by: Dr. Pepito Haq M.D. on 05/07/2018 4:28 PM
[2018-05-07 17:24] VITALS: BP 143/88
== END 2018-05-07 17:26 | disposition home or self-care (01) ==
LOC: FSED 14:50
DX: M79.645 Pain in left finger(s) (principal); S63.622A Sprain of interphalangeal joint of left thumb, initial encounter; F17.210 Nicotine dependence, cigarettes, uncomplicated
CPT/HCPCS: 99283